=== PATIENT | male | born 1975 | race American Indian/Alaskan Native ===

== ENCOUNTER 2018-04-11 03:09 | Inpatient (IN) | payer SELFPAY ==
[2018-04-11] MEDS ORDERED: Ammonia 2% Inhalant ONE (03:24)
[2018-04-11] MEDS ORDERED: Sodium Chloride 0.9% 1,000 ML IV STA ×2 (03:34→09:25)
[2018-04-11] MEDS ORDERED: Naloxone 0.4 mg/ml Inj (Adult) IVP ONE (03:38)
--- NOTE | 2018-04-11 03:47 | ED PDOC ---
HPI: Psych/Substance Abuse Time Seen by Provider: 04/11/18 03:32 Chief Complaint (Nursing): Substance Abuse Chief Complaint (Provider): Overdose ED Caveat: Acuity of Condition History Per: EMS History/Exam Limitations: clinical condition Current Symptoms Are (Timing): Still Present Additional Complaint(s): 43 year old male presents to the ED via EMS after being found at the scene unresponsive with pinpoint pupils. Patient was given nasal and IV Narcan in the field with a nasal airway placed. Spontaneous breathing returned however pt remains unresponsive with pinpoint pupils. ED caveat invoked secondary to pt's clinical condition. PMD: unobtainable Past Medical History Reviewed: Historical Data, Nursing Documentation, Vital Signs, Unable To Obtain Vital Signs: Last Vital Signs Temp 97.3 F L 04/11/18 03:25 Pulse 67 04/11/18 03:25 Resp 16 04/11/18 03:25 BP 110/75 04/11/18 03:25 Pulse Ox 100 04/11/18 03:25 - Family History Family History: States: Unknown Family Hx - Allergies Allergies/Adverse Reactions: Allergies Allergy/AdvReac Type Severity Reaction Status Date / Time Unobtainable Allergy Verified 04/11/18 03:21 Review of Systems Review Of Systems: ROS cannot be obtained secondary to pt's inabilty to answer questions. Physical Exam - Reviewed Nursing Documentation Reviewed: Yes Vital Signs Reviewed: Yes - Physical Exam Appears: Positive for: No Acute Distress Head Exam: Positive for: ATRAUMATIC, NORMAL INSPECTION, NORMOCEPHALIC Skin: Positive for: Normal Color, Warm Eye Exam: Positive for: Other (pinpoint pupils bilaterally) ENT: Positive for: Other (nasal trumpet in place) Neck: Positive for: Normal, Painless ROM, Supple Cardiovascular/Chest: Positive for: Regular Rate, Rhythm Respiratory: Positive for: Normal Breath Sounds. Negative for: Respiratory Distress Gastrointestinal/Abdominal: Positive for: Normal Exam, Soft. Negative for: Tenderness Extremity: Positive for: Normal ROM (all extremities) Neurologic/Psych: Negative for: Alert (pt unresponsive) - Laboratory Results Result Diagrams: 04/11/18 03:20 04/11/18 03:20 - ECG O2 Sat by Pulse Oximetry: 100 (RA) Pulse Ox Interpretation: Normal Medical Decision Making Medical Decision Making: Time: 332 Initial Impression: 43 year old male s/p opiate overdose Initial Plan: --CT head without contrast --EKG --Acetaminophen chemistry --Alcohol serum --CMP --Drug screen --Salicylate chemistry --U-dip --CBC with differential --Normal saline IV --Narcan 0.8mg IVP --Accucheck --Reevaluation 419 CT FINDINGS: BRAIN No acute intraparenchymal hemorrhage. No mass lesion. No CT evidence for acute territorial infarct. No midline shift or extra-axial collections. VENTRICLES: No hydrocephalus. ORBITS: The orbits are unremarkable. SINUSES AND MASTOIDS: The paranasal sinuses and mastoid air cells are clear. BONES: No fracture. SOFT TISSUES: Unremarkable. IMPRESSION: No acute intracranial abnormality. 0700 Patient care endorsed from this provider to Dr. Garner pending clinical sobriety. Scribe Attestation: Documented by Angelic Levy, acting as a scribe for Leandro Vasquez MD. Provider Scribe Attestation: All medical record entries made by the Scribe were at my direction and personally dictated by me. I have reviewed the chart and agree that the record accurately reflects my personal performance of the history, physical exam, medi cholo decision making, and the department course for this patient. I have also personally directed, reviewed, and agree with the discharge instructions and disposition. Disposition - Clinical Impression Clinical Impression: Substance abuse, Aspiration into airway - Disposition Disposition: Transfer of Care Disposition Time: 07:00 Condition: GUARDED
[2018-04-11 03:59] LABS: BASO # 0.1 K/uL (0.0-0.2); BASO % 0.5 % (0.0-2.0); EOS # 0.1 K/uL (0.0-0.7); EOS % 0.8 % (0.0-4.0); HEMOGLOBIN 14.1 g/dL (12.0-18.0); LYMPH # 2.1 K/uL (1.0-4.3); LYMPH % 14.9 % (20.0-40.0); MEAN CELL VOLUME 66.3 fl (80.0-94.0); MEAN CORPUSCULAR HEMOGLOBIN 20.9 pg (27.0-31.0); MEAN CORPUSCULAR HGB CONC 31.6 g/dL (33.0-37.0); MEAN PLATELET VOLUME 8.7 fl (7.2-11.7); MONO # 1.2 K/uL (0.0-0.8); MONO % 8.1 % (0.0-10.0); NEUT # 10.9 K/uL (1.8-7.0); NEUT % 75.7 % (50.0-75.0); NRBC % 0.1 % (0.0-0.0); RBC 6.76 Mil/uL (4.40-5.90); RED CELL DISTRIBUTION WIDTH 16.8 % (11.5-14.5); WHITE BLOOD COUNT 14.4 K/uL (4.8-10.8)
[2018-04-11 04:06] LABS: ACETAMINOPHEN < 10.0 ug/ml (10.0-30.0); ALB/GLOB RATIO 1.3 (1.0-2.1); ALBUMIN 4.4 g/dL (3.5-5.0); ALT/SGPT 95 U/L (21-72); AST/SGOT 137 U/L (17-59); BLOOD UREA NITROGEN 13 mg/dl (9-20); GFR NON-AFRICAN AMERICAN 56; SALICYLATE < 1.0 mg/dl
[2018-04-11] MEDS ORDERED: Naloxone 0.4 mg/ml Inj (Adult) ONE (04:06)
[2018-04-11 07:14] LABS: BARBITURATES, UR NEGATIVE (NEGATIVE); BENZODIAZEPINES, UR NEGATIVE (NEGATIVE); OPIATES, UR NEGATIVE (NEGATIVE); PHENCYCLIDINE, UR NEGATIVE (NEGATIVE)
--- NOTE | 2018-04-11 08:49 | CT ---
Date of service: 04/11/2018 PROCEDURE: CT HEAD WITHOUT CONTRAST. HISTORY: ams COMPARISON: None available TECHNIQUE: Axial computed tomography images were obtained through the head/brain without intravenous contrast. Radiation dose: Total exam DLP = 805.25 mGy-cm. This CT exam was performed using one or more of the following dose reduction techniques: Automated exposure control, adjustment of the mA and/or kV according to patient size, and/or use of iterative reconstruction technique. FINDINGS: HEMORRHAGE: No intracranial hemorrhage. BRAIN: No mass effect or edema. No atrophy or chronic microvascular ischemic changes. VENTRICLES: No hydrocephalus. CALVARIUM: Unremarkable. PARANASAL SINUSES: Unremarkable as visualized. No significant inflammatory changes. MASTOID AIR CELLS: Unremarkable as visualized. No inflammatory changes. OTHER FINDINGS: None. IMPRESSION: No acute intracranial pathology identified. Preliminary impression was provided by [employer].
[2018-04-11] MEDS ORDERED: Etomidate 20 mg/10ml Inj IV ONE ×2 (08:54→09:07)
[2018-04-11] MEDS ORDERED: Succinylcholine 200 mg/10 ml Inj IV ONE ×2 (08:55→09:07)
[2018-04-11] MEDS ORDERED: Propofol 10 mg/ml 1,000 MG/100 ML VIAL ONE (09:04)
[2018-04-11] MEDS ORDERED: Propofol 10 mg/ml Inj (20 ML) ONE (09:06)
[2018-04-11] MEDS ORDERED: Piperacillin/Tazobact 3.375 GM in Sodium Chloride 0.9% 100 ML IVPB STA (09:07)
[2018-04-11] MEDS ORDERED: Clindamycin 600mg/50ml D5W 600 MG/50 ML VIAL IVPB ONE (09:07)
[2018-04-11] MEDS ORDERED: Propofol 10 mg/ml Inj (20 ML) IV ONE (09:07)
[2018-04-11] MEDS ORDERED: Propofol 10 mg/ml 1,000 MG/100 ML VIAL IV SCH (09:15)
--- NOTE | 2018-04-11 09:22 | ED PDOC ---
- Laboratory Results Result Diagrams: 04/11/18 03:20 04/11/18 03:20 Lab Results: Total Bilirubin 0.6 mg/dl (0.2-1.3) 04/11/18 03:20 AST 137 U/L (17-59) H 04/11/18 03:20 ALT 95 U/L (21-72) H 04/11/18 03:20 Alkaline Phosphatase 68 U/L (38-126) 04/11/18 03:20 Total Protein 7.9 G/DL (6.3-8.2) 04/11/18 03:20 Albumin 4.4 g/dL (3.5-5.0) 04/11/18 03:20 Globulin 3.4 gm/dL (2.2-3.9) 04/11/18 03:20 Albumin/Globulin Ratio 1.3 (1.0-2.1) 04/11/18 03:20 - ECG O2 Sat by Pulse Oximetry: 97 Medical Decision Making Medical Decision Making: Time: 0700 Patient endorsed to provider from Dr. Vasquez. Time: 0915 Critical Care Time (30 minutes) - Patient noted to vomit while remaining obtunded. O2 saturation dropped to 87-88. Remained obtunded despite Narcan and stimulation. 7 ET tube used to protect airway. Will obtain chest xray and treat with Clindamycin and other medication to treat possible aspiration. Scribe Attestation: Documented by Jan Astorga, acting as a scribe for Yayo Garner MD. Provider Scribe Attestation: All medical record entries made by the Scribe were at my direction and personally dictated by me. I have reviewed the chart and agree that the record accurately reflects my personal performance of the history, physical exam, medical decision making, and the department course for this patient. I have also personally directed, reviewed, and agree with the discharge instructions and disposition. Disposition - Clinical Impression Clinical Impression: Substance abuse, Aspiration into airway - POA Present On Arrival: None - Disposition Disposition: Admitted as In-Patient Disposition Time: 09:26 Condition: GUARDED Forms: [facility] (Arabic)
[2018-04-11 09:53] LABS: ABG ALLEN TEST YES; ARTERIAL BLOOD GAS HCO3 21.7 mmol/L (21-28); ARTERIAL BLOOD GAS HEMOGLOBIN 14.1 g/dL (11.7-17.4); ARTERIAL BLOOD GAS O2 CAPACITY 20.3 mL/dL (16-24); ARTERIAL BLOOD GAS O2 CONTENT 20.5 ML/dL (15-23); ARTERIAL BLOOD GAS PCO2 49 mm/Hg (35-45); ARTERIAL BLOOD GAS PH 7.28 (7.35-7.45); ARTERIAL BLOOD GAS PO2 506 mm/Hg (80-100); ARTERIAL BLOOD GAS TCO2 24.5 mmol/L (22-28)
--- NOTE | 2018-04-11 10:22 | RAD ---
HISTORY: cough COMPARISON: None available. TECHNIQUE: Chest, one view. FINDINGS: Endotracheal tube terminates approximately 3.4 cm above the jing. LUNGS: No focal consolidation. Please note that chest x-ray has limited sensitivity for the detection of pulmonary masses. PLEURA: No significant pleural effusion identified. No definite pneumothorax . CARDIOVASCULAR: Cardiothymic silhouette appears unremarkable. OSSEOUS STRUCTURES: No acute osseous abnormality identified. VISUALIZED UPPER ABDOMEN: Unremarkable. OTHER FINDINGS: None. IMPRESSION: Endotracheal tube terminates approximately 3.4 cm above the jing.
--- NOTE | 2018-04-11 10:30 | CP.PCM.HP ---
<Jeannie Turner - Last Filed: 04/11/18 14:30> History of Present Illness - History of Present Illness History of Present Illness: History obtained from Nurse & EMS report -43 y/o M with unknown medical hx was brought to ED via EMS after being found by girlfriend in hotel room unresponsive with heroine at the bedside. He was found to have pinpoint pupils. Nasal trumpet was placed in the left nostril by paramedics. 2 intranasal & 2 IVP Narcan were given in the field. PMH: unobtainable ED Course: VS- Temp: 97.3F (axillary), P-67 bpm, BP-110/75, RR-16 spo2-100% NC ABG: PCo2- 49H, po2- 506, ph-7.28 Labs: WBC: 14.4, H & H: 14.1/44.8, RDW: 16.8, Na-135, K-3.5, AST-137, ALT- 95 Urine tox- Positive for amphetamine, ALcohol level 54 Patient was given another dose of Narcan intubated 0.8mg at 4:09 this AM. He was given one dose of zosyn & one dose of clindamycin. Patient was intubated to protect his airway. Present on Admission - Present on Admission Any Indicators Present on Admission: No Past Patient History - Past Social History Smoking Status: Unknown If Ever Smoked - PSYCHIATRIC Hx Substance Use: Yes Meds Allergies/Adverse Reactions: Allergies Allergy/AdvReac Type Severity Reaction Status Date / Time Unobtainable Allergy Verified 04/11/18 03:21 Physical Exam - Constitutional Additional comments: intubated with occasional thrashing movements in bed - Head Exam Head Exam: ATRAUMATIC - Eye Exam Additional comments: pinpoint pupils - ENT Exam ENT Exam: Mucous Membranes Dry - Respiratory Exam Respiratory Exam: Clear to Auscultation Bilateral. absent: Rhonchi, Wheezes - Cardiovascular Exam Cardiovascular Exam: RRR, +S1, +S2 - GI/Abdominal Exam GI & Abdominal Exam: Normal Bowel Sounds. absent: Distended, Guarding, Rigid - Back Exam Additional comments: no erythema or swelling - Neurological Exam Additional comments: nonresponsive to verbal commands; responsive to sternal rub with kicking of legs - Skin Skin Exam: Dry, Intact Results - Vital Signs Recent Vital Signs: Last Vital Signs Temp 97.8 F 04/11/18 08:30 Pulse 80 04/11/18 10:21 Resp 14 04/11/18 10:21 BP 123/74 04/11/18 10:21 Pulse Ox 97 04/11/18 10:05 - Labs Result Diagrams: 04/11/18 03:20 04/11/18 03:20 Labs: Laboratory Results - last 24 hr 04/11/18 04/11/18 04/11/18 03:20 03:20 03:20 WBC 14.4 H RBC 6.76 H Hgb 14.1 Hct 44.8 MCV 66.3 L MCH 20.9 L MCHC 31.6 L RDW 16.8 H Plt Count 240 MPV 8.7 Neut % (Auto) 75.7 H Lymph % (Auto) 14.9 L [place] % (Auto) 8.1 Eos % (Auto) 0.8 Baso % (Auto) 0.5 Neut # (Auto) 10.9 H Lymph # (Auto) 2.1 [place] # (Auto) 1.2 H Eos # (Auto) 0.1 Baso # (Auto) 0.1 pCO2 pO2 HCO3 ABG pH ABG Total CO2 ABG O2 Saturation ABG O2 Content ABG Base Excess ABG Hemoglobin ABG Carboxyhemoglobin POC ABG HHb (Measured) ABG Methemoglobin ABG O2 Capacity Demario Test A-a O2 Difference Hgb O2 Saturation Mechanical Rate FiO2 Tidal Volume PEEP Sodium 135 Potassium 4.5 Chloride 99 Carbon Dioxide 21 L Anion Gap 20 BUN 13 Creatinine 1.4 Est GFR ( Amer) > 60 Est GFR (Non-Af Amer) 56 POC Glucose (mg/dL) Random Glucose 84 Calcium 9.0 Total Bilirubin 0.6 AST 137 H ALT 95 H Alkaline Phosphatase 68 Total Protein 7.9 Albumin 4.4 Globulin 3.4 Albumin/Globulin Ratio 1.3 Salicylates < 1.0 Urine Opiates Screen Urine Methadone Screen Acetaminophen < 10.0 L Ur Barbiturates Screen Ur Phencyclidine Scrn Ur Amphetamines Screen U Benzodiazepines Scrn U Oth Cocaine Metabols U Cannabinoids Screen Alcohol, Quantitative 54 H 04/11/18 04/11/18 04/11/18 03:46 06:20 08:31 WBC RBC Hgb Hct MCV MCH MCHC RDW Plt Count MPV Neut % (Auto) Lymph % (Auto) [place] % (Auto) Eos % (Auto) Baso % (Auto) Neut # (Auto) Lymph # (Auto) [place] # (Auto) Eos # (Auto) Baso # (Auto) pCO2 pO2 HCO3 ABG pH ABG Total CO2 ABG O2 Saturation ABG O2 Content ABG Base Excess ABG Hemoglobin ABG Carboxyhemoglobin POC ABG HHb (Measured) ABG Methemoglobin ABG O2 Capacity Demario Test A-a O2 Difference Hgb O2 Saturation Mechanical Rate FiO2 Tidal Volume PEEP Sodium Potassium Chloride Carbon Dioxide Anion Gap BUN Creatinine Est GFR ( Amer) Est GFR (Non-Af Amer) POC Glucose (mg/dL) 106 85 Random Glucose Calcium Total Bilirubin AST ALT Alkaline Phosphatase Total Protein Albumin Globulin Albumin/Globulin Ratio Salicylates Urine Opiates Screen Negative Urine Methadone Screen Negative Acetaminophen Ur Barbiturates Screen Negative Ur Phencyclidine Scrn Negative Ur Amphetamines Screen Positive H U Benzodiazepines Scrn Negative U Oth Cocaine Metabols Negative U Cannabinoids Screen Negative Alcohol, Quantitative 04/11/18 08:42 WBC RBC Hgb Hct MCV MCH MCHC RDW Plt Count MPV Neut % (Auto) Lymph % (Auto) [place] % (Auto) Eos % (Auto) Baso % (Auto) Neut # (Auto) Lymph # (Auto) [place] # (Auto) Eos # (Auto) Baso # (Auto) pCO2 49 H pO2 506 H HCO3 21.7 ABG pH 7.28 L ABG Total CO2 24.5 ABG O2 Saturation 101.0 H ABG O2 Content 20.5 ABG Base Excess -4.1 L ABG Hemoglobin 14.1 ABG Carboxyhemoglobin 2.9 H POC ABG HHb (Measured) -1.0 L ABG Methemoglobin 1.8 ABG O2 Capacity 20.3 Demario Test Yes A-a O2 Difference 146.0 Hgb O2 Saturation 96.3 Mechanical Rate 12 FiO2 100.0 Tidal Volume 500 PEEP 5 Sodium Potassium Chloride Carbon Dioxide Anion Gap BUN Creatinine Est GFR ( Amer) Est GFR (Non-Af Amer) POC Glucose (mg/dL) Random Glucose Calcium Total Bilirubin AST ALT Alkaline Phosphatase Total Protein Albumin Globulin Albumin/Globulin Ratio Salicylates Urine Opiates Screen Urine Methadone Screen Acetaminophen Ur Barbiturates Screen Ur Phencyclidine Scrn Ur Amphetamines Screen U Benzodiazepines Scrn U Oth Cocaine Metabols U Cannabinoids Screen Alcohol, Quantitative Assessment & Plan - Assessment and Plan (Free Text) Assessment: 43 y/o M unknown medical hx, currently intubated, admitted to ICU for heroin overdose. 1. Heroin overdose (acute) -Continue intubation for airway protection. -Continue to monitor. -s/p Narcan 2. Emesis with possible aspiration -Continue vancomycin & zosyn. -FU official CXR report. 3. GI prophylaxis -Continue protonix 40mg QD. 4. DVT prophylaxis -Continue lovenox 40mg SC QD Code status -full code <Drea Munizno D - Last Filed: 04/11/18 15:27> Results - Vital Signs Recent Vital Signs: Last Vital Signs Temp 96.1 F L 04/11/18 12:00 Pulse 94 H 04/11/18 14:00 Resp 22 04/11/18 14:00 BP 129/71 04/11/18 14:00 Pulse Ox 100 04/11/18 14:00 - Labs Result Diagrams: 04/11/18 03:20 04/11/18 03:20 Labs: Laboratory Results - last 24 hr 04/11/18 04/11/18 04/11/18 03:20 03:20 03:20 WBC 14.4 H RBC 6.76 H Hgb 14.1 Hct 44.8 MCV 66.3 L MCH 20.9 L MCHC 31.6 L RDW 16.8 H Plt Count 240 MPV 8.7 Neut % (Auto) 75.7 H Lymph % (Auto) 14.9 L [place] % (Auto) 8.1 Eos % (Auto) 0.8 Baso % (Auto) 0.5 Neut # (Auto) 10.9 H Lymph # (Auto) 2.1 [place] # (Auto) 1.2 H Eos # (Auto) 0.1 Baso # (Auto) 0.1 pCO2 pO2 HCO3 ABG pH ABG Total CO2 ABG O2 Saturation ABG O2 Content ABG Base Excess ABG Hemoglobin ABG Carboxyhemoglobin POC ABG HHb (Measured) ABG Methemoglobin ABG O2 Capacity Demario Test A-a O2 Difference Hgb O2 Saturation Mechanical Rate FiO2 Tidal Volume PEEP Sodium 135 Potassium 4.5 Chloride 99 Carbon Dioxide 21 L Anion Gap 20 BUN 13 Creatinine 1.4 Est GFR ( Amer) > 60 Est GFR (Non-Af Amer) 56 POC Glucose (mg/dL) Random Glucose 84 Calcium 9.0 Magnesium Total Bilirubin 0.6 AST 137 H ALT 95 H Alkaline Phosphatase 68 Total Protein 7.9 Albumin 4.4 Globulin 3.4 Albumin/Globulin Ratio 1.3 Salicylates < 1.0 Urine Opiates Screen Urine Methadone Screen Acetaminophen < 10.0 L Ur Barbiturates Screen Ur Phencyclidine Scrn Ur Amphetamines Screen U Benzodiazepines Scrn U Oth Cocaine Metabols U Cannabinoids Screen Alcohol, Quantitative 54 H 04/11/18 04/11/18 04/11/18 03:46 06:20 08:31 WBC RBC Hgb Hct MCV MCH MCHC RDW Plt Count MPV Neut % (Auto) Lymph % (Auto) [place] % (Auto) Eos % (Auto) Baso % (Auto) Neut # (Auto) Lymph # (Auto) [place] # (Auto) Eos # (Auto) Baso # (Auto) pCO2 pO2 HCO3 ABG pH ABG Total CO2 ABG O2 Saturation ABG O2 Content ABG Base Excess ABG Hemoglobin ABG Carboxyhemoglobin POC ABG HHb (Measured) ABG Methemoglobin ABG O2 Capacity Demario Test A-a O2 Difference Hgb O2 Saturation Mechanical Rate FiO2 Tidal Volume PEEP Sodium Potassium Chloride Carbon Dioxide Anion Gap BUN Creatinine Est GFR ( Amer) Est GFR (Non-Af Amer) POC Glucose (mg/dL) 106 85 Random Glucose Calcium Magnesium Total Bilirubin AST ALT Alkaline Phosphatase Total Protein Albumin Globulin Albumin/Globulin Ratio Salicylates Urine Opiates Screen Negative Urine Methadone Screen Negative Acetaminophen Ur Barbiturates Screen Negative Ur Phencyclidine Scrn Negative Ur Amphetamines Screen Positive H U Benzodiazepines Scrn Negative U Oth Cocaine Metabols Negative U Cannabinoids Screen Negative Alcohol, Quantitative 04/11/18 04/11/18 08:42 10:06 WBC RBC Hgb Hct MCV MCH MCHC RDW Plt Count MPV Neut % (Auto) Lymph % (Auto) [place] % (Auto) Eos % (Auto) Baso % (Auto) Neut # (Auto) Lymph # (Auto) [place] # (Auto) Eos # (Auto) Baso # (Auto) pCO2 49 H pO2 506 H HCO3 21.7 ABG pH 7.28 L ABG Total CO2 24.5 ABG O2 Saturation 101.0 H ABG O2 Content 20.5 ABG Base Excess -4.1 L ABG Hemoglobin 14.1 ABG Carboxyhemoglobin 2.9 H POC ABG HHb (Measured) -1.0 L ABG Methemoglobin 1.8 ABG O2 Capacity 20.3 Demario Test Yes A-a O2 Difference 146.0 Hgb O2 Saturation 96.3 Mechanical Rate 12 FiO2 100.0 Tidal Volume 500 PEEP 5 Sodium Potassium Chloride Carbon Dioxide Anion Gap BUN Creatinine Est GFR ( Amer) Est GFR (Non-Af Amer) POC Glucose (mg/dL) Random Glucose Calcium Magnesium 2.0 Total Bilirubin AST ALT Alkaline Phosphatase Total Protein Albumin Globulin Albumin/Globulin Ratio Salicylates Urine Opiates Screen Urine Methadone Screen Acetaminophen Ur Barbiturates Screen Ur Phencyclidine Scrn Ur Amphetamines Screen U Benzodiazepines Scrn U Oth Cocaine Metabols U Cannabinoids Screen Alcohol, Quantitative Attending/Attestation - Attestation I have personally seen and examined this patient.: Yes I have fully participated in the care of the patient.: Yes I have reviewed all pertinent clinical information: Yes Notes (Text): 04/11/18 15:26 Patient seen and examined with resident. Case discussed and agreed with asse ssment and plan of management.
--- NOTE | 2018-04-11 11:21 | CP.PCM.CON ---
History of Present Illness - History of Present Illness History of Present Illness: 43yo M. No known PMHX, unobtainable. p/w heroin overdose requiring intubation for airway protection in ED, after vomiting episode while unconscious. Was found down in hotel by girlfriend with heroin at bedside, who called EMS. Review of Systems - Review of Systems Systems not reviewed;Unavailable: Altered Mental Status, Intubated Past Patient History - Past Social History Smoking Status: Unknown If Ever Smoked - PSYCHIATRIC Hx Substance Use: Yes Meds Allergies/Adverse Reactions: Allergies Allergy/AdvReac Type Severity Reaction Status Date / Time Unobtainable Allergy Verified 04/11/18 03:21 - Medications Medications: Current Medications Enoxaparin Sodium (Lovenox) 40 mg SC DAILY CLIVE; Protocol Propofol (Diprivan) 1,000 mg in 100 mls @ 2.041 mls/hr IV .Q24H CLIVE; Protocol Stop: 04/12/18 09:09 Last Titration: 04/11/18 11:12 Dose: 12.5 mcg/kg/min, 5.103 mls/hr Sodium Chloride (Sodium Chloride 0.9%) 1,000 mls @ 150 mls/hr IV .Q6H40M STA Stop: 04/11/18 16:04 Last Admin: 04/11/18 09:00 Dose: 150 mls/hr Vancomycin HCl 1 gm/ Sodium (Chloride) 250 mls @ 166.667 mls/hr IVPB Q12 CLIVE; Protocol Piperacillin Sod/Tazobactam (Sod 3.375 gm/ Sodium Chloride) 100 mls @ 100 mls/hr IVPB Q6 CLIVE; Protocol Pantoprazole Sodium (Protonix Inj) 40 mg IVP DAILY CLIVE Physical Exam - Head Exam Head Exam: ATRAUMATIC, NORMAL INSPECTION, NORMOCEPHALIC - Eye Exam Eye Exam: EOMI, Normal appearance, PERRL - ENT Exam ENT Exam: Mucous Membranes Moist, Normal Exam - Neck Exam Neck exam: Positive for: Normal Inspection - Respiratory Exam Respiratory Exam: Clear to Auscultation Bilateral, NORMAL BREATHING PATTERN - Cardiovascular Exam Cardiovascular Exam: REGULAR RHYTHM - GI/Abdominal Exam GI & Abdominal Exam: Normal Bowel Sounds, Soft. absent: Tenderness - Neurological Exam Additional comments: sedated Results - Vital Signs Recent Vital Signs: Last Vital Signs Temp 97.8 F 02/03/19 08:30 Pulse 80 04/11/18 10:30 Resp 13 04/11/18 10:30 BP 118/67 04/11/18 10:30 Pulse Ox 100 04/11/18 10:30 - Labs Result Diagrams: 04/11/18 03:20 04/11/18 03:20 Labs: Laboratory Results - last 24 hr 04/11/18 04/11/18 04/11/18 03:20 03:20 03:20 WBC 14.4 H RBC 6.76 H Hgb 14.1 Hct 44.8 MCV 66.3 L MCH 20.9 L MCHC 31.6 L RDW 16.8 H Plt Count 240 MPV 8.7 Neut % (Auto) 75.7 H Lymph % (Auto) 14.9 L [place] % (Auto) 8.1 Eos % (Auto) 0.8 Baso % (Auto) 0.5 Neut # (Auto) 10.9 H Lymph # (Auto) 2.1 [place] # (Auto) 1.2 H Eos # (Auto) 0.1 Baso # (Auto) 0.1 pCO2 pO2 HCO3 ABG pH ABG Total CO2 ABG O2 Saturation ABG O2 Content ABG Base Excess ABG Hemoglobin ABG Carboxyhemoglobin POC ABG HHb (Measured) ABG Methemoglobin ABG O2 Capacity Demario Test A-a O2 Difference Hgb O2 Saturation Mechanical Rate FiO2 Tidal Volume PEEP Sodium 135 Potassium 4.5 Chloride 99 Carbon Dioxide 21 L Anion Gap 20 BUN 13 Creatinine 1.4 Est GFR ( Amer) > 60 Est GFR (Non-Af Amer) 56 POC Glucose (mg/dL) Random Glucose 84 Calcium 9.0 Total Bilirubin 0.6 AST 137 H ALT 95 H Alkaline Phosphatase 68 Total Protein 7.9 Albumin 4.4 Globulin 3.4 Albumin/Globulin Ratio 1.3 Salicylates < 1.0 Urine Opiates Screen Urine Methadone Screen Acetaminophen < 10.0 L Ur Barbiturates Screen Ur Phencyclidine Scrn Ur Amphetamines Screen U Benzodiazepines Scrn U Oth Cocaine Metabols U Cannabinoids Screen Alcohol, Quantitative 54 H 04/11/18 04/11/18 04/11/18 03:46 06:20 08:31 WBC RBC Hgb Hct MCV MCH MCHC RDW Plt Count MPV Neut % (Auto) Lymph % (Auto) [place] % (Auto) Eos % (Auto) Baso % (Auto) Neut # (Auto) Lymph # (Auto) [place] # (Auto) Eos # (Auto) Baso # (Auto) pCO2 pO2 HCO3 ABG pH ABG Total CO2 ABG O2 Saturation ABG O2 Content ABG Base Excess ABG Hemoglobin ABG Carboxyhemoglobin POC ABG HHb (Measured) ABG Methemoglobin ABG O2 Capacity Demario Test A-a O2 Difference Hgb O2 Saturation Mechanical Rate FiO2 Tidal Volume PEEP Sodium Potassium Chloride Carbon Dioxide Anion Gap BUN Creatinine Est GFR ( Amer) Est GFR (Non-Af Amer) POC Glucose (mg/dL) 106 85 Random Glucose Calcium Total Bilirubin AST ALT Alkaline Phosphatase Total Protein Albumin Globulin Albumin/Globulin Ratio Salicylates Urine Opiates Screen Negative Urine Methadone Screen Negative Acetaminophen Ur Barbiturates Screen Negative Ur Phencyclidine Scrn Negative Ur Amphetamines Screen Positive H U Benzodiazepines Scrn Negative U Oth Cocaine Metabols Negative U Cannabinoids Screen Negative Alcohol, Quantitative 04/11/18 08:42 WBC RBC Hgb Hct MCV MCH MCHC RDW Plt Count MPV Neut % (Auto) Lymph % (Auto) [place] % (Auto) Eos % (Auto) Baso % (Auto) Neut # (Auto) Lymph # (Auto) [place] # (Auto) Eos # (Auto) Baso # (Auto) pCO2 49 H pO2 506 H HCO3 21.7 ABG pH 7.28 L ABG Total CO2 24.5 ABG O2 Saturation 101.0 H ABG O2 Content 20.5 ABG Base Excess -4.1 L ABG Hemoglobin 14.1 ABG Carboxyhemoglobin 2.9 H POC ABG HHb (Measured) -1.0 L ABG Methemoglobin 1.8 ABG O2 Capacity 20.3 Demario Test Yes A-a O2 Difference 146.0 Hgb O2 Saturation 96.3 Mechanical Rate 12 FiO2 100.0 Tidal Volume 500 PEEP 5 Sodium Potassium Chloride Carbon Dioxide Anion Gap BUN Creatinine Est GFR ( Amer) Est GFR (Non-Af Amer) POC Glucose (mg/dL) Random Glucose Calcium Total Bilirubin AST ALT Alkaline Phosphatase Total Protein Albumin Globulin Albumin/Globulin Ratio Salicylates Urine Opiates Screen Urine Methadone Screen Acetaminophen Ur Barbiturates Screen Ur Phencyclidine Scrn Ur Amphetamines Screen U Benzodiazepines Scrn U Oth Cocaine Metabols U Cannabinoids Screen Alcohol, Quantitative Assessment & Plan (1) Heroin overdose Assessment and Plan: 43yo M. Unknown PMHx. p/w heroin overdose requiring intubation in ED for airway protection. patient was admitted to ICU and immediately woke up, begging for us to remove the ETT. He was alert and oriented enough to do so. Patient was then safely extubated. After a few hours he was breathing normally and conversing normally. He was completely unaware of how he ended up in the hospital, nor what he took the night before. He swore he doesn't take heroin. Drug screen was only positive for amphetamines. A few hours later he wanted to be discharged. He was still tachycardic and I advised him to stay while the amphetamines were still in his system and possibly causing tachycardia. He was completely coherent and understood the risks, but decided to sign out AMA. Time spent 45 minutes Multi-disciplinary rounds were performed with house staff, nursing, speech therapy, respiratory therapy, pharmacy and nutrition with integrated input from the primary team/attending and other consulting services. The documented time is cumulative and includes review of patient data/exams/labs/chart review and examination of the patient on rounds and throughout the day; time is exclusive of any procedures or teaching time. Status: Acute
[2018-04-11] MEDS ORDERED: Lactated Ringer's 1,000 ML IV SCH (11:45)
--- NOTE | 2018-04-11 11:51 | CARD ---
APPROVED REPORT Date of service: 04/11/2018 EKG Measurement Heart [id number] <Conclusion> Normal sinus rhythm Voltage criteria for left ventricular hypertrophy T wave abnormality, consider inferior ischemia Abnormal ECG
--- NOTE | 2018-04-11 12:02 | CP.PCM.CON ---
History of Present Illness - History of Present Illness History of Present Illness: 43 YR OLD MALE REFERRED FOR PULMONARY EVALUATION FOLLOWING ENDOTRACHEAL INTUBATION AND VENTILATION.HE WAS ADMITTED WITH MADELINE VIZCAINO AND VOMITED IN THE ER.HE WAS THEN INTUBATED TO MAINTAIN ADEQUATE AIRWAYS AND IS PRESENTLY SEDATED ON PROPOFOL. NO FURTHER HISTORY IS AVAILABLE. Past Patient History - Past Social History Smoking Status: Unknown If Ever Smoked - PSYCHIATRIC Hx Substance Use: Yes Meds Allergies/Adverse Reactions: Allergies Allergy/AdvReac Type Severity Reaction Status Date / Time Unobtainable Allergy Verified 04/11/18 03:21 - Medications Medications: Current Medications Enoxaparin Sodium (Lovenox) 40 mg SC DAILY CLIVE; Protocol Propofol (Diprivan) 1,000 mg in 100 mls @ 2.041 mls/hr IV .Q24H CLIVE; Protocol Stop: 04/12/18 09:09 Last Titration: 04/11/18 11:12 Dose: 12.5 mcg/kg/min, 5.103 mls/hr Sodium Chloride (Sodium Chloride 0.9%) 1,000 mls @ 150 mls/hr IV .Q6H40M STA Stop: 04/11/18 16:04 Last Admin: 04/11/18 09:00 Dose: 150 mls/hr Vancomycin HCl 1 gm/ Sodium (Chloride) 250 mls @ 166.667 mls/hr IVPB Q12 CLIVE; Protocol Piperacillin Sod/Tazobactam (Sod 3.375 gm/ Sodium Chloride) 100 mls @ 100 mls/hr IVPB Q6 CLIVE; Protocol Lactated Ringer's (Lactated Ringer's) 1,000 mls @ 100 mls/hr IV .Q10H CLIVE Stop: 04/12/18 11:46 Pantoprazole Sodium (Protonix Inj) 40 mg IVP DAILY CLIVE Physical Exam - Constitutional Additional comments: INTUBATED AND ON THE VENT - Head Exam Head Exam: ATRAUMATIC, NORMAL INSPECTION, NORMOCEPHALIC - Eye Exam Eye Exam: EOMI, Normal appearance, PERRL Pupil Exam: NORMAL ACCOMODATION, PERRL - ENT Exam ENT Exam: Mucous Membranes Moist, Normal Exam - Neck Exam Neck exam: Positive for: Normal Inspection - Respiratory Exam Additional comments: ON THE VENTILATOR SEDATED - Cardiovascular Exam Cardiovascular Exam: REGULAR RHYTHM - GI/Abdominal Exam GI & Abdominal Exam: Normal Bowel Sounds, Soft. absent: Tenderness - Rectal Exam Rectal Exam: NORMAL INSPECTION - Extremities Exam Extremities exam: Positive for: normal inspection - Back Exam Back exam: NORMAL INSPECTION - Skin Skin Exam: Dry, Intact, Normal Color, Warm Results - Vital Signs Recent Vital Signs: Last Vital Signs Temp 97.8 F 04/11/18 08:30 Pulse 80 04/11/18 10:30 Resp 13 04/11/18 10:30 BP 118/67 04/11/18 10:30 Pulse Ox 100 04/11/18 10:30 - Labs Result Diagrams: 04/11/18 03:20 04/11/18 03:20 Labs: Laboratory Results - last 24 hr 04/11/18 04/11/18 04/11/18 03:20 03:20 03:20 WBC 14.4 H RBC 6.76 H Hgb 14.1 Hct 44.8 MCV 66.3 L MCH 20.9 L MCHC 31.6 L RDW 16.8 H Plt Count 240 MPV 8.7 Neut % (Auto) 75.7 H Lymph % (Auto) 14.9 L [place] % (Auto) 8.1 Eos % (Auto) 0.8 Baso % (Auto) 0.5 Neut # (Auto) 10.9 H Lymph # (Auto) 2.1 [place] # (Auto) 1.2 H Eos # (Auto) 0.1 Baso # (Auto) 0.1 pCO2 pO2 HCO3 ABG pH ABG Total CO2 ABG O2 Saturation ABG O2 Content ABG Base Excess ABG Hemoglobin ABG Carboxyhemoglobin POC ABG HHb (Measured) ABG Methemoglobin ABG O2 Capacity Demario Test A-a O2 Difference Hgb O2 Saturation Mechanical Rate FiO2 Tidal Volume PEEP Sodium 135 Potassium 4.5 Chloride 99 Carbon Dioxide 21 L Anion Gap 20 BUN 13 Creatinine 1.4 Est GFR ( Amer) > 60 Est GFR (Non-Af Amer) 56 POC Glucose (mg/dL) Random Glucose 84 Calcium 9.0 Total Bilirubin 0.6 AST 137 H ALT 95 H Alkaline Phosphatase 68 Total Protein 7.9 Albumin 4.4 Globulin 3.4 Albumin/Globulin Ratio 1.3 Salicylates < 1.0 Urine Opiates Screen Urine Methadone Screen Acetaminophen < 10.0 L Ur Barbiturates Screen Ur Phencyclidine Scrn Ur Amphetamines Screen U Benzodiazepines Scrn U Oth Cocaine Metabols U Cannabinoids Screen Alcohol, Quantitative 54 H 02/03/19 02/03/19 02/03/19 03:46 06:20 08:31 WBC RBC Hgb Hct MCV MCH MCHC RDW Plt Count MPV Neut % (Auto) Lymph % (Auto) [place] % (Auto) Eos % (Auto) Baso % (Auto) Neut # (Auto) Lymph # (Auto) [place] # (Auto) Eos # (Auto) Baso # (Auto) pCO2 pO2 HCO3 ABG pH ABG Total CO2 ABG O2 Saturation ABG O2 Content ABG Base Excess ABG Hemoglobin ABG Carboxyhemoglobin POC ABG HHb (Measured) ABG Methemoglobin ABG O2 Capacity Demario Test A-a O2 Difference Hgb O2 Saturation Mechanical Rate FiO2 Tidal Volume PEEP Sodium Potassium Chloride Carbon Dioxide Anion Gap BUN Creatinine Est GFR ( Amer) Est GFR (Non-Af Amer) POC Glucose (mg/dL) 106 85 Random Glucose Calcium Total Bilirubin AST ALT Alkaline Phosphatase Total Protein Albumin Globulin Albumin/Globulin Ratio Salicylates Urine Opiates Screen Negative Urine Methadone Screen Negative Acetaminophen Ur Barbiturates Screen Negative Ur Phencyclidine Scrn Negative Ur Amphetamines Screen Positive H U Benzodiazepines Scrn Negative U Oth Cocaine Metabols Negative U Cannabinoids Screen Negative Alcohol, Quantitative 04/11/18 08:42 WBC RBC Hgb Hct MCV MCH MCHC RDW Plt Count MPV Neut % (Auto) Lymph % (Auto) [place] % (Auto) Eos % (Auto) Baso % (Auto) Neut # (Auto) Lymph # (Auto) [place] # (Auto) Eos # (Auto) Baso # (Auto) pCO2 49 H pO2 506 H HCO3 21.7 ABG pH 7.28 L ABG Total CO2 24.5 ABG O2 Saturation 101.0 H ABG O2 Content 20.5 ABG Base Excess -4.1 L ABG Hemoglobin 14.1 ABG Carboxyhemoglobin 2.9 H POC ABG HHb (Measured) -1.0 L ABG Methemoglobin 1.8 ABG O2 Capacity 20.3 Demario Test Yes A-a O2 Difference 146.0 Hgb O2 Saturation 96.3 Mechanical Rate 12 FiO2 100.0 Tidal Volume 500 PEEP 5 Sodium Potassium Chloride Carbon Dioxide Anion Gap BUN Creatinine Est GFR ( Amer) Est GFR (Non-Af Amer) POC Glucose (mg/dL) Random Glucose Calcium Total Bilirubin AST ALT Alkaline Phosphatase Total Protein Albumin Globulin Albumin/Globulin Ratio Salicylates Urine Opiates Screen Urine Methadone Screen Acetaminophen Ur Barbiturates Screen Ur Phencyclidine Scrn Ur Amphetamines Screen U Benzodiazepines Scrn U Oth Cocaine Metabols U Cannabinoids Screen Alcohol, Quantitative - Impressions Impression: CXR-ETT IN GOOD POSITION--3.4 CM ABOVE JOANN,CLEAR LUNGS Assessment & Plan - Assessment and Plan (Free Text) Assessment: DRUG OD ASPIRATION PNEUMONIA Plan: CONTINUE CURRENT RX MAINTAIN ADEQUATE AIRWAYS AND OXYGENATION ATTEMPT TO EXTUBATE ONCE CLINICALLY STABLE EMPERIC IV ANTIBIOTIC RX - Date & Time Date: 04/11/18 Time: 12:11
[2018-04-11] MEDS ORDERED: methylPREDNISolone 60 MG in Sodium Chloride 0.9% 50 ML IVPB ONE (12:15)
[2018-04-11] MEDS ORDERED: methylPREDNISolone 60 MG in Sodium Chloride 0.9% 50 ML IVPB SCH (12:15)
[2018-04-11 12:39] VITALS: BP 129/71; TEMP 96.1; O2SAT 100
[2018-04-11] MEDS ORDERED: Albuterol-Ipratrop 3 mg / 0.5 (3 ml) UD INH SCH (16:00)
[2018-04-11] MEDS ORDERED: Piperacillin/Tazobact 3.375 GM in Sodium Chloride 0.9% 100 ML IVPB SCH (16:00)
[2018-04-11 16:03] VITALS: PULSE 90
[2018-04-11 16:29] VITALS: RESP 26
--- NOTE | 2018-04-11 16:49 | RAD ---
HISTORY: ASPIRATION PNEUMONIA COMPARISON: Chest x-ray performed 10/09/18 at 902 hr TECHNIQUE: Chest, one view. FINDINGS: Interval removal of endotracheal tube. LUNGS: No focal consolidation. Please note that chest x-ray has limited sensitivity for the detection of pulmonary masses. PLEURA: No significant pleural effusion identified. No definite pneumothorax . CARDIOVASCULAR: Heart size appears within normal limits. No significant atherosclerotic calcification present. OSSEOUS STRUCTURES: No acute osseous abnormality identified. VISUALIZED UPPER ABDOMEN: Unremarkable. OTHER FINDINGS: None. IMPRESSION: Interval removal of endotracheal tube.
[2018-04-12] MEDS ORDERED: Enoxaparin 40 mg Syringe SC SCH (09:00)
== END 2018-04-11 17:17 | disposition left against medical advice (07) | DRG 917 ==
LOC: H.ER 03:09 → H.ERHOLD 09:13 → H.ICU/CCU 10:46
PROC: 0BH17EZ Insertion of Endotracheal Airway into Trachea, Via Natural or Artificial Opening (ICD-10-PCS; principal; 2018-04-11)
DX: T40.2X1A Poisoning by other opioids, accidental (unintentional), initial encounter (principal); J69.0 Pneumonitis due to inhalation of food and vomit; R00.0 Tachycardia, unspecified